=== PATIENT | male | born 2000 | race Native Hawaiian/Other Pacific Islander ===

== ENCOUNTER 2022-11-23 15:21 | Outpatient (CLI) | payer BC, SELFPAY | END 2022-11-23 15:22 | disposition home or self-care (01) | LOC: NFLDREF 11-24 07:51 | PROVIDERS: PCP Family Medicine; Referring Provider Family Medicine; Visit Provider Nurse Practitioner Family | DX: R50.9 Fever, unspecified (principal); R39.9 Unspecified symptoms and signs involving the genitourinary system; N39.0 Urinary tract infection, site not specified; R11.10 Vomiting, unspecified; R10.9 Unspecified abdominal pain | CPT/HCPCS: 87086 ==

== ENCOUNTER 2023-08-27 18:38 | Outpatient (CLI) | payer OTHER, SELFPAY | END 2023-08-27 18:39 | disposition home or self-care (01) | LOC: NFLDREF 09-12 18:48 | PROVIDERS: PCP Family Medicine; Referring Provider Family Medicine; Visit Provider Nurse Practitioner | DX: R10.31 Right lower quadrant pain (principal) | CPT/HCPCS: 87086 ==